=== PATIENT | female | born 1995 | race American Indian/Alaskan Native ===

== ENCOUNTER 2017-12-18 16:17 | Outpatient (CLI) | payer MEDICAID ==
[2017-12-18 18:32] LABS: Bacteria,Urine 1+ /HPF (Negative); Bilirubin,Urine NEG (Negative); Blood,Urine NEG (Negative); Color,Urine Yellow (Yellow); Mucus,Urine 2+ /HPF
[2017-12-18 18:47] LABS: Hematocrit 35.9 % (30.3-42.9); Hemoglobin 11.5 gm/dl (10.1-14.3); Mean Corpuscular HGB Conc 32 % (30-34); Mean Corpuscular Volume 76 fl (79-97); Platelet Count 211 K/mm3 (140-440); Red Blood Count 4.74 M/mm3 (3.65-5.03); Red Cell Distribution Width 17.4 % (13.2-15.2)
[2017-12-18 18:52] LABS: Mean Corpuscular Hemoglobin 24 pg (28-32)
[2017-12-18 18:59] LABS: Alanine Aminotransferase 19 units/L (7-56); Uric Acid 4.4 mg/dL (3.5-7.6)
[2017-12-18] MEDS: TYLENOL PO ONE (18:59)
[2017-12-18 20:06] VITALS: BP 112/58
--- NOTE | 2017-12-18 20:29 | Ultrasound Report ---
FINAL REPORT EXAM: US OB LIMITED HISTORY: well being TECHNIQUE: Real-time sonography was performed of the gravid uterus and images are submitted for interpretation. Detailed anatomic survey was not performed. PRIORS: None. FINDINGS: Twin A: Transverse presentation with the head to the mother's right. The heart is beating at a rate of 147 beats per minute. Twin B: Transverse presentation with the head to the mother's left. The heart is beating at a rate of 155 beats per minute. IMPRESSION: Twin gestation as above.
== END 2017-12-18 20:30 | disposition home or self-care (01) ==
LOC: TRG 16:17
PROVIDERS: ATTEND Obstetrics & Gynecology
DX: O32.2XX1 Maternal care for transverse and oblique lie, fetus 1 (principal); O32.2XX2 Maternal care for transverse and oblique lie, fetus 2; O30.002 Twin pregnancy, unspecified number of placenta and unspecified number of amniotic sacs, second trimester; O47.02 False labor before 37 completed weeks of gestation, second trimester; Z3A.20 20 weeks gestation of pregnancy
CPT/HCPCS: 36415; 76815; 81001; 82565; 83615; 84450; 84460; 84550; 85027

== ENCOUNTER 2018-01-09 14:05 | Outpatient (CLI) | payer MEDICAID ==
[2018-01-09] MEDS ORDERED: LACTATED RINGERS 500 ML IV ONE (14:37)
[2018-01-09 16:17] LABS: Bacteria,Urine 1+ /HPF (Negative); Bilirubin,Urine NEG (Negative); Blood,Urine NEG (Negative); Color,Urine Amber (Yellow); Mucus,Urine 2+ /HPF
[2018-01-09 16:28] LABS: Amphetamine Screen,Urine PRESUMPTIVE NEGATIVE; Benzodiazepines Screen,Urine PRESUMPTIVE NEGATIVE; Cocaine Screen,Urine PRESUMPTIVE NEGATIVE; Methadone Screen,Urine PRESUMPTIVE NEGATIVE; Opiate Screen,Urine PRESUMPTIVE NEGATIVE
[2018-01-09 17:02] LABS: Cannabinoid Screen,Urine PRESUMPTIVE POSITIVE
[2018-01-09] MEDS ORDERED: LACTATED RINGERS 1,000 ML ONE (17:43)
--- NOTE | 2018-01-09 18:27 | Ultrasound Report ---
FINAL REPORT EXAM: US OB BPP EA ADD EXAM HISTORY: well being TECHNIQUE: Transabdominal sonography of the pelvis. PRIORS: None. FINDINGS: Biophysical profile (twin B): breathing movements: 2/2 movements: 2/2 posture and tone: 2/2 Qualitative amniotic fluid volume: 2/2 Total: 8/8 heart rate 165 beats per minute. IMPRESSION: 1. Biophysical profile as noted above.
--- NOTE | 2018-01-09 18:27 | Ultrasound Report ---
FINAL REPORT EXAM: US OB BPP WO NON-STRESS HISTORY: no care / well being TECHNIQUE: Transabdominal sonography of the pelvis. PRIORS: None. FINDINGS: Biophysical profile (twin A): breathing movements: 2/2 movements: 2/2 posture and tone: 2/2 Qualitative amniotic fluid volume: 2/2 Total: 8/8 heart rate 148 beats per minute. IMPRESSION: 1. Biophysical profile as noted above.
== END 2018-01-09 20:15 | disposition home or self-care (01) ==
LOC: TRG 14:05
PROVIDERS: ATTEND Obstetrics & Gynecology
DX: O30.002 Twin pregnancy, unspecified number of placenta and unspecified number of amniotic sacs, second trimester (principal); O47.02 False labor before 37 completed weeks of gestation, second trimester; Z3A.23 23 weeks gestation of pregnancy
CPT/HCPCS: 59025; 76819; 80307; 81001; 96360; J7120

== ENCOUNTER 2018-02-22 18:56 | Outpatient (CLI) | payer MEDICAID ==
[2018-02-22] MEDS ORDERED: LACTATED RINGERS 500 ML IV ONE (19:01)
[2018-02-22 21:18] VITALS: BP 136/74
== END 2018-02-22 21:28 | disposition home or self-care (01) ==
LOC: TRG 18:56
PROVIDERS: ATTEND Obstetrics & Gynecology
DX: O47.03 False labor before 37 completed weeks of gestation, third trimester (principal); Z3A.29 29 weeks gestation of pregnancy
CPT/HCPCS: 59025

== ENCOUNTER 2018-03-03 16:48 | Outpatient (CLI) | payer MEDICAID ==
[2018-03-03] MEDS ORDERED: LACTATED RINGERS 500 ML IV ONE (17:38)
[2018-03-03 18:27] LABS: Color,Urine Amber (Yellow)
[2018-03-03 18:28] LABS: Bacteria,Urine 2+ /HPF (Negative); Bilirubin,Urine NEG (Negative); Blood,Urine NEG (Negative); Mucus,Urine 2+ /HPF
[2018-03-03 19:55] VITALS: BP 127/62
[2018-03-03 20:18] LABS: Hematocrit 34.5 % (30.3-42.9); Hemoglobin 11.1 gm/dl (10.1-14.3); Mean Corpuscular HGB Conc 32 % (30-34); Mean Corpuscular Volume 78 fl (79-97); Platelet Count 160 K/mm3 (140-440); Red Blood Count 4.45 M/mm3 (3.65-5.03); Red Cell Distribution Width 16.9 % (13.2-15.2)
[2018-03-03 20:19] LABS: Mean Corpuscular Hemoglobin 25 pg (28-32)
--- NOTE | 2018-03-03 20:25 | Ultrasound Report ---
FINAL REPORT EXAM: US OB FOLLOWUP EA ADD GESTAT HISTORY: GROWTH, CERVICAL LENGTH, STEVAN TECHNIQUE: Real-time sonography was performed of the gravid uterus and images are submitted for interpretation. PRIORS: None. FINDINGS: Twin gestation: The cervix is long and closed measuring 4.3 cm. Baby A: Baby A is in a breech presentation. The placenta is anterior and the os is clear. There is a normal amount of amniotic fluid. The heart is beating at a rate of 150 beats per minute. Biometric measurements give an estimated gestational age of 30 weeks 3 days Estimated weight: 1630 grams or 3 pounds and 10 ounces. This is at the 19th percentile. Biophysical profile: Breathin Movement: 2 Tone: 2 Fluid volume: 2 Baby B: Baby B is in a breech presentation. The placenta is anterior and the os is clear. There is a normal amount of amniotic fluid. The heart is beating at a rate of 159 beats per minute. Biometric measurements give an estimated gestational age of 31 weeks 1 day Estimated weight: 1747 grams or 3 pounds and 14 ounces. This is at the 35th percentile. Biophysical profile: Breathin Movement: 2 Tone: 2 Fluid volume: 2 IMPRESSION: 1. Normal biophysical profiles for both twins 03/26 2. Both twins are in a breech presentation
--- NOTE | 2018-03-03 20:27 | Ultrasound Report ---
FINAL REPORT EXAM: US OB FOLLOW UP HISTORY: GROWTH, STEVAN TECHNIQUE: Real-time sonography was performed of the gravid uterus and images are submitted for interpretation. PRIORS: None. FINDINGS: Twin gestation: The cervix is long and closed measuring 4.3 cm. Baby A: Baby A is in a breech presentation. The placenta is anterior and the os is clear. There is a normal amount of amniotic fluid. The heart is beating at a rate of 150 beats per minute. Biometric measurements give an estimated gestational age of 30 weeks 3 days Estimated weight: 1630 grams or 3 pounds and 10 ounces. This is at the 19th percentile. Biophysical profile: Breathin Movement: 2 Tone: 2 Fluid volume: 2 Baby B: Baby B is in a breech presentation. The placenta is anterior and the os is clear. There is a normal amount of amniotic fluid. The heart is beating at a rate of 159 beats per minute. Biometric measurements give an estimated gestational age of 31 weeks 1 day Estimated weight: 1747 grams or 3 pounds and 14 ounces. This is at the 35th percentile. Biophysical profile: Breathin Movement: 2 Tone: 2 Fluid volume: 2 IMPRESSION: 1. Normal biophysical profiles for both twins 03/26 2. Both twins are in a breech presentation
[2018-03-03 20:29] LABS: Alanine Aminotransferase 7 units/L (7-56); Uric Acid 5.2 mg/dL (3.5-7.6)
--- NOTE | 2018-03-03 20:31 | Ultrasound Report ---
FINAL REPORT EXAM: US OB BPP WO NON-STRESS HISTORY: elevated bp TECHNIQUE: Real-time sonography was performed of the gravid uterus and images are submitted for interpretation. PRIORS: None. FINDINGS: Twin gestation: The cervix is long and closed measuring 4.3 cm. Baby A: Baby A is in a breech presentation. The placenta is anterior and the os is clear. There is a normal amount of amniotic fluid. The heart is beating at a rate of 150 beats per minute. Biometric measurements give an estimated gestational age of 30 weeks 3 days Estimated weight: 1630 grams or 3 pounds and 10 ounces. This is at the 19th percentile. Biophysical profile: Breathin Movement: 2 Tone: 2 Fluid volume: 2 Baby B: Baby B is in a breech presentation. The placenta is anterior and the os is clear. There is a normal amount of amniotic fluid. The heart is beating at a rate of 159 beats per minute. Biometric measurements give an estimated gestational age of 31 weeks 1 day Estimated weight: 1747 grams or 3 pounds and 14 ounces. This is at the 35th percentile. Biophysical profile: Breathin Movement: 2 Tone: 2 Fluid volume: 2 IMPRESSION: 1. Normal biophysical profiles for both twins 03/26 2. Both twins are in a breech presentation
--- NOTE | 2018-03-03 20:32 | Ultrasound Report ---
FINAL REPORT EXAM: US OB BPP EA ADD EXAM HISTORY: GROWTH, STEVAN TECHNIQUE: Real-time sonography was performed of the gravid uterus and images are submitted for interpretation. PRIORS: None. FINDINGS: Twin gestation: The cervix is long and closed measuring 4.3 cm. Baby A: Baby A is in a breech presentation. The placenta is anterior and the os is clear. There is a normal amount of amniotic fluid. The heart is beating at a rate of 150 beats per minute. Biometric measurements give an estimated gestational age of 30 weeks 3 days Estimated weight: 1630 grams or 3 pounds and 10 ounces. This is at the 19th percentile. Biophysical profile: Breathin Movement: 2 Tone: 2 Fluid volume: 2 Baby B: Baby B is in a breech presentation. The placenta is anterior and the os is clear. There is a normal amount of amniotic fluid. The heart is beating at a rate of 159 beats per minute. Biometric measurements give an estimated gestational age of 31 weeks 1 day Estimated weight: 1747 grams or 3 pounds and 14 ounces. This is at the 35th percentile. Biophysical profile: Breathin Movement: 2 Tone: 2 Tone: 2 Fluid volume: 2 IMPRESSION: 1. Normal biophysical profiles for both twins 03/26 2. Both twins are in a breech presentation
== END 2018-03-03 21:00 | disposition home or self-care (01) ==
LOC: TRG 16:48
PROVIDERS: ATTEND Obstetrics & Gynecology
DX: O32.1XX0 Maternal care for breech presentation, not applicable or unspecified (principal); O47.03 False labor before 37 completed weeks of gestation, third trimester; O30.003 Twin pregnancy, unspecified number of placenta and unspecified number of amniotic sacs, third trimester; Z3A.31 31 weeks gestation of pregnancy
CPT/HCPCS: 36415; 59025; 76816; 76819; 81001; 82565; 83615; 84450; 84460; 84550; 85027; 96360; J7120

== ENCOUNTER 2018-03-12 18:33 | Observation (INO) | payer MEDICAID ==
[2018-03-12] MEDS ORDERED: TYLENOL PO PRN (21:12)
[2018-03-12] MEDS ORDERED: AMBIEN PO PRN (21:12)
[2018-03-12] MEDS ORDERED: ZOFRAN IV PRN (21:12)
[2018-03-12] MEDS ORDERED: LACTATED RINGERS 1,000 ML ONE (21:17)
[2018-03-12] MEDS: LACTATED RINGERS 1,000 ML IV SCH (21:52)
[2018-03-12] MEDS: CELESTONE SOLUSPAN IM SCH (22:05)
[2018-03-12 22:08] LABS: Hematocrit 33.5 % (30.3-42.9); Hemoglobin 11.1 gm/dl (10.1-14.3); Mean Corpuscular HGB Conc 33 % (30-34); Mean Corpuscular Volume 77 fl (79-97); Platelet Count 164 K/mm3 (140-440); Red Blood Count 4.34 M/mm3 (3.65-5.03)
[2018-03-12 22:11] LABS: Mean Corpuscular Hemoglobin 26 pg (28-32)
[2018-03-12 22:23] LABS: Bilirubin,Urine NEG (Negative); Blood,Urine NEG (Negative); Color,Urine Yellow (Yellow); Mucus,Urine FEW /HPF
[2018-03-12 22:29] LABS: Alanine Aminotransferase 7 units/L (7-56); Uric Acid 5.8 mg/dL (3.5-7.6)
--- NOTE | 2018-03-13 00:22 | Ultrasound Report ---
FINAL REPORT EXAM: US OB BPP WO NON-STRESS HISTORY: elevated BPs; EFW, STEVAN, BPP COMPARISON: March 03, 2018. TECHNIQUE: Several real-time grayscale and color Doppler images were obtained. FINDINGS: Twin live gestations. Cervix is closed and measures 4 centimeters in length. Twin a estimated gestational age 32 weeks 0 days. Estimated delivery date May 07, 2018. Estimated weight 1792 grams. heart rate 160 beats per minute. Placenta location anterior fundal. No placenta previa. Largest pocket of amniotic fluid 4.2 centimeters within normal limits. presentation cephalic. BPD 8.0 centimeters 32 weeks 1 day. Head circumference 30.0 centimeters 33 weeks 2 days. Abdominal circumference 27.0 centimeters 31 weeks 1 day. Femoral length 6.1 centimeters 31 weeks 4 days. Anatomic survey not performed. Normal breathing tone, breathing movement, movements, amniotic fluid volume. Biophysical profile score 8/8. Twin B: Estimated gestational age 32 weeks 0 days. Estimated delivery date May 07, 2018. Estimated weight 1829 grams. heart rate 135 beats per minute. Placenta location anterior. Largest pocket of amniotic fluid 4.4 centimeters within normal limits. presentation is breech. BPD 7.8 centimeters 31 weeks 2 days. Head circumference 30.2 centimeters 33 weeks 3 days. Abdominal circumference 37.2 centimeters 31 weeks 3 days. Femoral length 6.2 centimeters 32 weeks 0 days. Normal breathing tone, breathing movement, movements, amniotic fluid volume. Biophysical profile score 8/8. IMPRESSION: Twin live gestations. Twin A estimated gestational age 32 weeks 0 days. Estimated delivery date May 07, 2018. presentation cephalic. Twin B estimated gestational age 32 weeks 0 days. Estimated delivery date May 07, 2018. Estimated weight 1829 grams. presentation is breech. Biophysical profile score 8/8 for each twin gestation.
--- NOTE | 2018-03-13 00:23 | Ultrasound Report ---
FINAL REPORT EXAM: US OB FOLLOWUP EA ADD GESTAT HISTORY: elevated BPS, STEVAN, EFW, BPP COMPARISON: March 03, 2018. TECHNIQUE: Several real-time grayscale and color Doppler images were obtained. FINDINGS: Twin live gestations. Cervix is closed and measures 4 centimeters in length. Twin a estimated gestational age 32 weeks 0 days. Estimated delivery date May 07, 2018. Estimated weight 1792 grams. heart rate 160 beats per minute. Placenta location anterior fundal. No placenta previa. Largest pocket of amniotic fluid 4.2 centimeters within normal limits. presentation cephalic. BPD 8.0 centimeters 32 weeks 1 day. Head circumference 30.0 centimeters 33 weeks 2 days. Abdominal circumference 27.0 centimeters 31 weeks 1 day. Femoral length 6.1 centimeters 31 weeks 4 days. Anatomic survey not performed. Normal breathing tone, breathing movement, movements, amniotic fluid volume. Biophysical profile score 8/8. Twin B: Estimated gestational age 32 weeks 0 days. Estimated delivery date May 07, 2018. Estimated weight 1829 grams. heart rate 135 beats per minute. Placenta location anterior. Largest pocket of amniotic fluid 4.4 centimeters within normal limits. presentation is breech. BPD 7.8 centimeters 31 weeks 2 days. Head circumference 30.2 centimeters 33 weeks 3 days. Abdominal circumference 37.2 centimeters 31 weeks 3 days. Femoral length 6.2 centimeters 32 weeks 0 days. Normal breathing tone, breathing movement, movements, amniotic fluid volume. Biophysical profile score 8/8. IMPRESSION: Twin live gestations. Twin A estimated gestational age 32 weeks 0 days. Estimated delivery date May 07, 2018. presentation cephalic. Twin B estimated gestational age 32 weeks 0 days. Estimated delivery date May 07, 2018. Estimated weight 1829 grams. presentation is breech. Biophysical profile score 8/8 for each twin gestation.
--- NOTE | 2018-03-13 00:23 | Ultrasound Report ---
FINAL REPORT EXAM: US OB BPP EA ADD EXAM HISTORY: elevated BPs; STEVAN, EFW, BPP COMPARISON: March 03, 2018. TECHNIQUE: Several real-time grayscale and color Doppler images were obtained. FINDINGS: Twin live gestations. Cervix is closed and measures 4 centimeters in length. Twin a estimated gestational age 32 weeks 0 days. Estimated delivery date May 07, 2018. Estimated weight 1792 grams. heart rate 160 beats per minute. Placenta location anterior fundal. No placenta previa. Largest pocket of amniotic fluid 4.2 centimeters within normal limits. presentation cephalic. BPD 8.0 centimeters 32 weeks 1 day. Head circumference 30.0 centimeters 33 weeks 2 days. Abdominal circumference 27.0 centimeters 31 weeks 1 day. Femoral length 6.1 centimeters 31 weeks 4 days. Anatomic survey not performed. Normal breathing tone, breathing movement, movements, amniotic fluid volume. Biophysical profile score 8/8. Twin B: Estimated gestational age 32 weeks 0 days. Estimated delivery date May 07, 2018. Estimated weight 1829 grams. heart rate 135 beats per minute. Placenta location anterior. Largest pocket of amniotic fluid 4.4 centimeters within normal limits. presentation is breech. BPD 7.8 centimeters 31 weeks 2 days. Head circumference 30.2 centimeters 33 weeks 3 days. Abdominal circumference 37.2 centimeters 31 weeks 3 days. Femoral length 6.2 centimeters 32 weeks 0 days. Normal breathing tone, breathing movement, movements, amniotic fluid volume. Biophysical profile score 8/8. IMPRESSION: Twin live gestations. Twin A estimated gestational age 32 weeks 0 days. Estimated delivery date May 07, 2018. presentation cephalic. Twin B estimated gestational age 32 weeks 0 days. Estimated delivery date May 07, 2018. Estimated weight 1829 grams. presentation is breech. Biophysical profile score 8/8 for each twin gestation.
[2018-03-13] MEDS: LACTATED RINGERS 1,000 ML IV SCH (01:57)
[2018-03-13 09:14] LABS: Creatinine,Urine TNR mg/dL (0.1-20.0); Total Volume,Urine TNR
[2018-03-13 09:15] LABS: Creatinine Clearance Urine TNR; Patient Height,Urine TNR inches
--- NOTE | 2018-03-13 13:24 | History and Physical Report ---
History of Present Illness Date of examination: 03/13/18 Date of admission: 03/12/18 18:33 Chief complaint: sent from the office with elevated blood pressures History of present illness: Pt is a 22 year old -Lao primigravida MAGED 05/02/18 at 32w6d with Di- Di twin IUP who presents from the office with BPs 140/90s for prolonged observation. She denies headache, scotomata, RUQ pain or blurry vision but does report some lower extremity edema. 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 Her course is notable for the first noted elevated BP in the record of 160s/70s at 18 wks gestation consistent with a diagnosis of chronic hypertension. Past History Past Medical History: hypertension Past Surgical History: no surgical history [employer] History: herpes Family/Genetic History: diabetes, hypertension Social history: no significant social history - Obstetrical History Expected Date of Delivery: 05/02/18 Actual Gestation: 32 Week(s) 6 Day(s) : 1 Medications and Allergies Allergies Allergy/AdvReac Type Severity Reaction Status Date / Time No Known Allergies Allergy Verified 03/03/18 17:35 Home Medications Medication Instructions Recorded Confirmed Last Taken Type Aspirin [Lo-Dose Aspirin EC] 81 mg PO DAILY 03/03/18 03/12/18 03/12/18 History Folic Acid [Folvite] 1 mg PO DAILY 03/03/18 03/12/18 03/12/18 History Pnv No.133/Ferrous Fum/Folic [Gs 1 cap PO DAILY 03/03/18 03/12/18 03/12/18 History Vitamins Tablet] A Active Meds: Active Medications Acetaminophen (Tylenol) 650 mg PO Q4H PRN PRN Reason: Pain, Mild (1-3) Last Admin: 03/12/18 22:04 Dose: 650 mg Betamethasone Acet/Betameth SodPhos (Celestone Soluspan) 12 mg IM Q24H FRANCHESKA Stop: 03/13/18 22:01 Last Admin: 03/12/18 22:05 Dose: 12 mg Lactated Ringer's (Lactated Ringers) 1,000 mls @ 75 mls/hr IV DIRECT FRANCHESKA Last Admin: 03/13/18 01:57 Dose: 75 mls/hr Ondansetron HCl (Zofran) 4 mg IV Q8H PRN PRN Reason: Nausea And Vomiting Zolpidem Tartrate (Ambien) 10 mg PO QHS PRN PRN Reason: Insomnia Review of Systems All systems: negative - Vital Signs Vital signs: Vital Signs Temp Resp 98.2 F 20 03/12/18 20:01 03/12/18 20:01 Temp Pulse Resp BP Pulse Ox 98.9 F 93 H 20 167/79 100 03/13/18 04:15 03/13/18 10:57 03/13/18 04:15 03/13/18 10:57 03/13/18 10:57 - Physical Exam Breasts: Positive: deferred Cardiovascular: Regular rate Lungs: Positive: Clear to auscultation Abdomen: Positive: soft (obese, gravid ) Uterus: Positive: enlarged (gravid) Extremities: Positive: edema (trace) - Obstetrical FHR: auscultation normal Uterine Contraction Monitor Mode: External Uterine Tone Measurement Phase: Resting Results Result Diagrams: 03/12/18 21:56 03/12/18 21:56 Abnormal lab results 03/12/18 03/12/18 Range/Units 21:56 21:56 MCV 77 L (79-97) fl MCH 26 L (28-32) pg RDW 17.0 H (13.2-15.2) % Creatinine 0.4 L (0.7-1.2) mg/dL All other labs normal. Ultrasound: report reviewed Assessment and Plan A: Di-Di twin IUP at 32w6d; BPP 8/8 for both twins 03/12/18 Chronic Hypertension with recent elevation of blood pressure Morbid Obesity Genital Herpes Alpha and Beta Thalassemia carrier P: Admit to antepartum service PIH panel 24 hr urine collection Betamethasone course MFM consult Serial BP Antihypertensives PRN Closely monitor clinical status
[2018-03-13 19:19] LABS: Creatinine,Urine 99.2 mg/dL (0.1-20.0)
[2018-03-13] MEDS ORDERED: BENADRYL PO PRN (22:30)
[2018-03-13] MEDS ORDERED: TYLENOL PO PRN (22:30)
[2018-03-13] MEDS ORDERED: DEEP SEA NS PRN (22:30)
[2018-03-13] MEDS ORDERED: COLACE PO PRN (22:30)
[2018-03-13] MEDS: CELESTONE SOLUSPAN IM SCH (23:25)
[2018-03-14] MEDS ORDERED: PRENATAL VITAMIN PO SCH (10:00)
--- NOTE | 2018-03-14 14:14 | Progress Note ---
Assessment and Plan - Patient Problems (1) Twin gestation in third trimester Current Visit: Yes Status: Acute Plan to address problem: will attempt to discharge patient home today will initiate labetalol po (2) PIH ( induced hypertension), antepartum Current Visit: Yes Status: Acute Subjective - Subjective Date of service: 03/14/18 Interval history: Patient without significant complaints. 24hour urine protein 465mg. The patient' s labs are unremarkable. Awaiting evaluation from [facility]. Patient reports: appetite normal Objective - Vital Signs Latest vital signs: Vital Signs Temp Pulse Resp BP BP Pulse Ox 03/14/18 10:16 92 H 139/77 03/14/18 08:45 93 H 97 03/14/18 08:40 93 H 97 03/14/18 08:35 92 H 97 03/14/18 08:30 91 H 97 03/14/18 08:25 90 99 03/14/18 08:20 91 H 99 03/14/18 08:15 89 100 03/14/18 08:10 93 H 96 03/14/18 08:05 90 98 03/14/18 08:00 98.4 F 85 14 146/72 98 03/14/18 07:55 96 H 98 03/14/18 07:50 96 H 98 03/14/18 07:45 93 H 99 03/14/18 07:40 88 100 03/14/18 07:35 89 100 03/14/18 07:30 87 100 03/14/18 07:29 85 146/72 03/14/18 07:22 91 H 164/77 03/14/18 05:54 95 H 131/59 03/14/18 02:49 93 H 142/76 03/14/18 01:48 93 H 142/80 03/14/18 00:49 106 H 131/63 03/13/18 23:49 96 H 137/81 03/13/18 22:49 109 H 124/58 03/13/18 21:48 110 H 136/74 03/13/18 20:48 104 H 143/71 03/13/18 20:05 98.1 F 16 03/13/18 19:49 103 H 137/67 03/13/18 18:48 107 H 146/81 - Labs Labs: Abnormal lab results 03/13/18 03/13/18 Range/Units Unknown Unknown Urine Creatinine 99.2 H (0.1-20.0) mg/dL Ur Total Protein 24 Hr 465.00 H (2-200) Urine Total Protein 31 H (5-11.8) mg/dL
[2018-03-14] MEDS ORDERED: NORMODYNE PO SCH (15:00)
[2018-03-19 18:34] VITALS: BP 147/70
== END 2018-03-14 16:13 | disposition home or self-care (01) ==
LOC: LD 18:33 → INTOOBSV 03-13 22:30 → OBSVTOIN 03-13 22:30
PROVIDERS: ADMIT Obstetrics & Gynecology; ATTEND Obstetrics & Gynecology
DX: O13.3 Gestational [pregnancy-induced] hypertension without significant proteinuria, third trimester (principal); Z68.43 Body mass index [BMI] 50.0-59.9, adult; O99.213 Obesity complicating pregnancy, third trimester; E66.01 Morbid (severe) obesity due to excess calories; O30.003 Twin pregnancy, unspecified number of placenta and unspecified number of amniotic sacs, third trimester; Z3A.32 32 weeks gestation of pregnancy
CPT/HCPCS: 36415; 76816; 76819; 81001; 82565; 82570; 82575; 83615; 84156; 84450; 84460; 84550; 85027; 86592; 86850; 86900; 86901; 96372; G0378; G0379; J0702; J7120; J2405